=== PATIENT | female | born 1990 | race Caucasian/White ===

== ENCOUNTER → 2018-11-07 | Outpatient (CLI) | payer BC ==
[2018-11-07 09:14] LABS: HEMATOCRIT 38.8 % (36.0-47.0); HEMOGLOBIN 13.2 g/dL (12.0-15.5); MEAN CORPUSCULAR HEMOGLOBIN 29.4 pg (27.0-33.4); MEAN CORPUSCULAR VOLUME 87 fl (80-97); PLATELET COUNT 293 10^3/uL (150-450); RED BLOOD COUNT 4.47 10^6/uL (3.72-5.28); RED CELL DISTRIBUTION WIDTH 13.1 % (11.5-14.0); WHITE BLOOD COUNT 7.1 10^3/uL (4.0-10.5)
[2018-11-07 09:30] LABS: ANION GAP 12 (5-19); BLOOD UREA NITROGEN 5 mg/dL (7-20); CALCIUM 9.5 mg/dL (8.4-10.2); CARBON DIOXIDE 23 mmol/L (22-30); CHLORIDE 107 mmol/L (98-107); GLUCOSE 87 mg/dL (75-110); POTASSIUM 4.1 mmol/L (3.6-5.0); SODIUM 142.1 mmol/L (137-145)
== END ==
LOC: LAB 08:50
PROVIDERS: ATTEND Registered Nurse
DX: N91.2 Amenorrhea, unspecified (principal)
CPT/HCPCS: 36415; 80048; 84702; 85027

== ENCOUNTER 2018-11-08 13:20 | Emergency (ER) | payer BC ==
[2018-11-08 13:36] VITALS: BP 116/73
--- NOTE | 2018-11-08 14:09 | ER Document Report ---
ED General - General Chief Complaint: Vag Bleeding, +preg <12wks Stated Complaint: CRAMPING/VAGINAL BLEEDING Time Seen by Provider: 11/08/18 13:43 TRAVEL OUTSIDE OF THE [place] IN LAST 30 DAYS: No - HPI Notes: Patient is a 88-year-old female that presents to the emergency department for chief complaint of vaginal bleeding. Patient found out yesterday that she was . Her LMP was 09/26/18. She noticed some bright red vaginal bleeding that began yesterday and has continued today. She denies any blood clots or increase in bleeding. She is having lower abdominal cramping which is intermittent and sharp. She denies any vomiting but does have some nausea. She has not had any care yet. She is not currently taking vitamins. She denies concern for STD and vaginal discharge. Past Medical History: Negative Past Surgical History: Tonsillectomy Social History: Occasional alcohol. Denies tobacco and drug use Family History: Reviewed and noncontributory for presenting illness Allergies: Reviewed, see documented allergy list. REVIEW OF SYSTEMS: CONSTITUTIONAL : No fever No chills No diaphoresis No recent illness EENT: No vision changes No congestion No sore throat CARDIOVASCULAR: No chest pain No palpitations RESPIRATORY: No shortness of breath No cough No difficulty breathing GASTROINTESTINAL: abdominal pain No nausea No vomiting No diarrhea GENITOURINARY: Vaginal bleeding No dysuria No hematuria No difficulty urinating MUSCULOSKELETAL: No back pain No leg pain No arm pain SKIN: No rashes No lesions LYMPHATIC: No swollen, enlarged glands. NEUROLOGICAL: No lightheadedness No headache No weakness No paresthesias PSYCHIATRIC: No anxiety No depression PHYSICAL EXAMINATION: Vital signs reviewed, nursing noted reviewed. GENERAL: Well-appearing, well-nourished and in no acute distress. HEAD: Atraumatic, normocephalic. EYES: Eyes appear normal, extraocular movements intact, sclera anicteric, conjunctiva are normal. ENT: nares patent, oropharynx clear without exudates. Moist mucous membranes. NECK: Normal range of motion, supple without lymphadenopathy LUNGS: Breath sounds clear to auscultation bilaterally and equal. No wheezes rales or rhonchi. HEART: Regular rate and rhythm without murmurs ABDOMEN: Soft, nontender, normoactive bowel sounds. No rebound, guarding, or rigidity. No masses appreciated. EXTREMITIES: Nontender, good range of motion, no pitting or edema. NEUROLOGICAL: No focal neurological deficits. Moves all extremities spontaneously Motor and sensory grossly intact on exam. PSYCH: Normal mood, normal affect. SKIN: Warm, Dry, normal turgor, no rashes or lesions noted on exposed skin - Related Data Allergies/Adverse Reactions: amoxicillin Allergy (Verified 11/08/18 13:32) Past Medical History - General Last Menstrual Period: september 26, 2018 - Social History Smoking Status: Former Smoker Frequency of alcohol use: None Drug Abuse: None Family History: Reviewed & Not Pertinent Patient has suicidal ideation: No Patient has homicidal ideation: No Renal/ Medical History: Denies: Hx Peritoneal Dialysis Past Surgical History: Denies: Hx Tonsillectomy - adenoids only Physical Exam - Vital signs Vitals: Temp Pulse Resp BP Pulse Ox 98.7 F 75 16 116/73 100 11/08/18 13:33 11/08/18 13:33 11/08/18 13:33 11/08/18 13:33 11/08/18 13:33 Course - Re-evaluation Re-evalutation: 11/08/18 14:12 Vitals reviewed. Nursing notes reviewed. CBC, BMP and hCG quant yesterday which I reviewed. RhoGam workup was drawn today. I advised patient to get an ultrasound done in the emergency room to evaluate for ectopic . She does not wish to remain in the emergency room and states she is having to return to work right now. Without ultrasound to cannot rule out ectopic in the setting of vaginal bleeding with pain. I will order her an outpatient ultrasound and told her to obtain it at her earliest convenience. She was advised to return to the emergency room at any point in time for further workup. She will return for any worsening pain or bleeding. I did discuss threatened miscarriage with her and symptoms to monitor for. She will be referred to [employer] [employer] for follow-up. Patient understands her medical care and has capacity to make medical decisions. She will leave AGAINST MEDICAL ADVICE. - Vital Signs Vital signs: Temp Pulse Resp BP Pulse Ox 98.7 F 75 16 116/73 100 11/08/18 13:33 11/08/18 13:33 11/08/18 13:33 11/08/18 13:33 11/08/18 13:33 Discharge - Discharge Clinical Impression: Vaginal bleeding during Condition: Stable Disposition: AGAINST MEDICAL ADVICE Instructions: Threatened Miscarriage ([facility]) Additional Instructions: With vaginal bleeding in there is a concern that he may have an ectopic . It was advised today that you obtain an ultrasound to evaluate for ectopic . Ectopic is when the is implanted outside of the uterus. This can be a surgical emergency. By leaving AGAINST MEDICAL ADVICE today you are risking loss of life, fertility, and permanent disability. Please obtain the outpatient ultrasound as early as possible or return to the emergency room for reevaluation at any point in time. We yolande your blood type today. If your blood type is Rh- you will require a RhoGam injection today. It is important that you follow-up on the results of this test in case RhoGam is indicated. If you do not get the RhoGam injection when it is indicated it can cause detrimental outcomes to your current and future pregnancies. Please begin taking vitamins. Do not smoke or drink while . Forms: Follow-Up Radiology Testing Referrals: [facility] [Provider Group] - Follow up tomorrow
== END 2018-11-08 14:20 | disposition left against medical advice (07) ==
LOC: ER 13:20
DX: O20.9 Hemorrhage in early pregnancy, unspecified (principal); O26.891 Other specified pregnancy related conditions, first trimester; R10.30 Lower abdominal pain, unspecified; R11.0 Nausea; Z3A.01 Less than 8 weeks gestation of pregnancy; Z87.891 Personal history of nicotine dependence; Z53.29 Procedure and treatment not carried out because of patient's decision for other reasons
CPT/HCPCS: 36415; 86900; 86901; 99283

== ENCOUNTER → 2018-11-08 | Outpatient (CLI) | payer BC ==
--- NOTE | 2018-11-08 17:05 | RADIOLOGY REPORT (SQ) ---
EXAM DESCRIPTION: U/S OB TRANSVAG W/DOPPLER COMPLETED DATE/TIME: 11/08/2018 4:43 pm REASON FOR STUDY: VAGINAL BLEEDING IN COMPARISON: None. TECHNIQUE: Transvaginal and transabdominal static and realtime grayscale images acquired of the pelv is. Additional selected spectral and color Doppler images recorded. All images stored on PACs. bHCG: Pending. CLINICAL DATES: LMP 09/26/2018, JENNY 07/03/2019, EGA 6 weeks 1 day LIMITATIONS: None. FINDINGS: In the endometrial canal there is a anechoic structure measuring 0.66 x 0.95 x 0.75 cm mos t compatible with a gestational sac and corresponding to a gestational age of 5 weeks and 3 days. Wi thin the gestational sac there is a small yolk sac visualized. No evidence of pole. ULTRASOUND EGA: 5 weeks 3 days ULTRASOUND JENNY: 07/08/2019 SURVEY: Too early to assess. SUBCHORIONIC BLEED: No. SIZE OF BLEED: Not applicable. UTERUS: Unremarkable size and appearance measuring 8.8 x 4.3 by 6.3 cm. Small amount of fluid within the endometrial canal. CERVICAL LENGTH: 2.8 cm Closed. RIGHT ADNEXA: Normal ovary with normal vascular flow. No adnexal free fluid. No adnexal masses. LEFT ADNEXA: Normal ovary with normal vascular flow. There is a 1.8 x 1.3 cm cyst. No adnexal free fluid. No adnexal masses. FREE FLUID: None. OTHER: No other significant finding. IMPRESSION: Intrauterine gestational sac corresponding to estimated US gestational age of 5 weeks an d 3 days. No pole visualized at this time. Trimester of : First - 0 to 13 weeks. TECHNICAL DOCUMENTATION: JOB ID: [id number] [employer]- All Rights Reserved rev Reading location - IP/workstation name: [email or web address]
== END ==
LOC: RAD 16:40
PROVIDERS: ATTEND Emergency Medicine
DX: O46.90 Antepartum hemorrhage, unspecified, unspecified trimester (principal); Z3A.00 Weeks of gestation of pregnancy not specified
CPT/HCPCS: 76817; 93976

== ENCOUNTER → 2019-02-02 | Outpatient (CLI) | payer BC | LOC: LAB 08:56 | PROVIDERS: ATTEND Midwife | DX: Z36.89 Encounter for other specified antenatal screening (principal) | CPT/HCPCS: 36415; 82105 ==

== ENCOUNTER 2019-02-08 10:31 | Observation (INO) | payer BC ==
[2019-02-08] MEDS ORDERED: DEXTROSE 5%-LACTATED RINGERS 1,000 ML IV ONE ×2 (12:30→13:30)
[2019-02-08 12:47] LABS: APPEARANCE,URINE SLIGHTLY-CLOUDY; BILIRUBIN,URINE NEGATIVE (NEGATIVE); COLOR,URINE YELLOW; GLUCOSE, URINE NEGATIVE (NEGATIVE); KETONES,URINE TRACE mg/dL (NEGATIVE); LEUKOCYTE ESTERASE,URINE NEGATIVE (NEGATIVE); NITRITE,URINE NEGATIVE (NEGATIVE); PROTEIN,URINE NEGATIVE (NEGATIVE); URINE SPECIFIC GRAVITY 1.014; UROBILINOGEN,URINE NEGATIVE mg/dL (<2.0)
[2019-02-08] MEDS ORDERED: ONDANSETRON HCL INJ/PF 4 MG/2 ML SDV IV PRN (13:00)
[2019-02-08] MEDS ORDERED: PROMETHAZINE HCL INJ 25 MG/1 ML VIAL IV PRN (13:00)
[2019-02-08 13:09] LABS: HEMATOCRIT 30.5 % (36.0-47.0); HEMOGLOBIN 10.9 g/dL (12.0-15.5); MEAN CORPUSCULAR HEMOGLOBIN 30.2 pg (27.0-33.4); MEAN CORPUSCULAR HGB CONC 35.7 g/dL (32.0-36.0); MEAN CORPUSCULAR VOLUME 85 fl (80-97); PLATELET COUNT 236 10^3/uL (150-450); RED BLOOD COUNT 3.61 10^6/uL (3.72-5.28); RED CELL DISTRIBUTION WIDTH 12.6 % (11.5-14.0)
[2019-02-08] MEDS: CEFTRIAXONE 1 GM/D5W RTU 1 GM/50 ML RTUPB IV SCH ×2 (13:51→21:39)
[2019-02-08] MEDS: RINGERS SOLUTION,LACTATED 1,000 ML IV PRN (15:14)
[2019-02-08] MEDS: ACETAMINOPHEN WITH CODEINE #3 TABLET PO PRN ×2 (16:34→20:37)
--- NOTE | 2019-02-08 20:08 | RADIOLOGY REPORT (SQ) ---
EXAM DESCRIPTION: US LIMITED COMPLETED DATE/TME: 02/08/2019 00:00 CLINICAL HISTORY: 28 years, Female, CERVICAL LENGTH Findings: Cervical length measures 3.1 cm and is closed. There is a single intrauterine gestation with fetus in vertex position. LVP measures 3.7 cm. heart rate preserved at 150 bpm. JOSE ALEJANDRO is clear. Placenta lies posteriorly. IMPRESSION: Cervix is closed measuring 3 cm. Single viable IUP.
--- NOTE | 2019-02-08 20:10 | RADIOLOGY REPORT (SQ) ---
EXAM DESCRIPTION: US RETROPERITONEUM COMPLETED DATE/TME: 02/08/2019 00:00 CLINICAL HISTORY: 28 years, Female, PYELONEPHRITIS Findings: The right kidney measures 13.2 cm. Left kidney measures 11.5 cm. There is moderate right hydronephrosis. No significant left hydronephrosis. Right renal pelvis is dilated to 3.4 cm and right ureter dilated to 3.6 cm. Bladder is moderately distended and demonstrates bilateral ureteral jets. No perinephric fluid. IMPRESSION: Moderate right hydronephrosis noted. This may be related to gravid state. Bilateral ureteral jets are noted, which indicates that the urinary obstruction is not complete.
[2019-02-09] MEDS: ACETAMINOPHEN WITH CODEINE #3 TABLET PO PRN ×3 (00:55→09:42)
[2019-02-09] MEDS: RINGERS SOLUTION,LACTATED 1,000 ML IV PRN ×2 (05:41→11:18)
[2019-02-09] MEDS: CEFTRIAXONE 1 GM/D5W RTU 1 GM/50 ML RTUPB IV SCH ×2 (09:38→21:36)
--- NOTE | 2019-02-09 12:55 | PDOC PROGRESS REPORT ---
Subjective Progress Note for:: 02/09/19 Subjective:: Pt states that she is less painful today. However, she is complaining of a headache that is resolved with Tylenol #3 for an hour or 2 but then returns; patient reports good movement. Patient denies contractions, cramping and leakage of fluid. Reason For Visit: PYELONEPHRITIS Physical Exam - Physical Exam Vital Signs: Temp Pulse Resp BP Pulse Ox 98.6 F 93 18 99/67 L 100 02/09/19 11:51 02/09/19 11:51 02/09/19 11:51 02/09/19 11:51 02/09/19 11:51 Intake & Output 02/08/19 02/09/19 02/10/19 06:59 06:59 06:59 Intake Total 1520 702 Balance 1520 702 Weight 69.4 kg General appearance: PRESENT: no acute distress Respiratory exam: PRESENT: clear to auscultation nisreen Cardiovascular exam: PRESENT: RRR GI/Abdominal exam: PRESENT: normal bowel sounds, soft Musculoskeletal exam: ABSENT: ambulatory, deformity, dislocation, full ROM, normal inspection, tenderness, other Result Laboratory Results: 02/08/19 12:54 02/08/19 02/08/19 12:25 12:54 WBC 11.0 H RBC 3.61 L Hgb 10.9 L Hct 30.5 L MCV 85 MCH 30.2 MCHC 35.7 RDW 12.6 Plt Count 236 Urine Color YELLOW Urine Appearance SLIGHTLY-CLOUDY Urine pH 6.0 Ur Specific [place] 1.014 Urine Protein NEGATIVE Urine Glucose (UA) NEGATIVE Urine Ketones TRACE H Urine Blood MODERATE H Urine Nitrite NEGATIVE Ur Leukocyte Esterase NEGATIVE Urine WBC (Auto) 7 Urine RBC (Auto) 5 Impressions: Obstetrics Ultrasound 02/08/19 00:00 IMPRESSION: Cervix is closed measuring 3 cm. Single viable IUP. Renal Ultrasound 02/08/19 00:00 IMPRESSION: Moderate right hydronephrosis noted. This may be related to gravid state. Bilateral ureteral jets are noted, which indicates that the urinary obstruction is not complete. Assessment & Plan - Diagnosis (1) Hydronephrosis of right kidney Is this a current diagnosis for this admission?: Yes (2) Pyelonephritis affecting in second trimester Is this a current diagnosis for this admission?: Yes (3) UTI (urinary tract infection) Qualifiers: Urinary tract infection type: acute pyelonephritis Qualified Code(s): N10 - Acute pyelonephritis Is this a current diagnosis for this admission?: Yes - Time Time Spent with patient: Less than 15 minutes Medications reviewed and adjusted accordingly: Yes Within: within 48 hours - Inpatient Certification Based on my medical assessment, after consideration of the patient's comorbidities, presenting symptoms, or acuity I expect that the services needed warrant INPATIENT care.: No - Plan Summary Plan Summary: 1. Continue antibiotics 2. Await urine culture 3. Pain management
[2019-02-09] MEDS: IBUPROFEN 800 MG TABLET PO PRN ×2 (13:37→21:38)
[2019-02-10] MEDS: RINGERS SOLUTION,LACTATED 1,000 ML IV PRN (04:34)
[2019-02-10] MEDS: IBUPROFEN 800 MG TABLET PO PRN (08:02)
[2019-02-10] MEDS: CEFTRIAXONE 1 GM/D5W RTU 1 GM/50 ML RTUPB IV SCH (09:16)
--- NOTE | 2019-02-10 09:22 | Discharge Summary ---
Discharge Summary (SDC) - Discharge Final Diagnosis: UTI Pyelonephritis Discharge Date: 02/10/19 Condition: Good Referrals: ZANA RODRIGUEZ DO [Primary Care Provider] - Discharge Diet: As Tolerated - pt admitted with pyelonephritis and received IV antibiotics. pt is improved and remained afebrile discharged and she will keep her regular appointment. d/brenda on keflex 500 qid Discharge Activity: Activity As Tolerated, Walk Frequently Home Care Assistance: None Needed Report the Following to Your Physician Immediately: Shortness of Breath, Nausea, Vomiting, Increase in Pain, Fever over 101 Degrees, Redness, Swelling, IV Site Infection Signs, Urinary Infection Signs
[2019-02-10 11:37] VITALS: BP 124/75
== END 2019-02-10 12:05 | disposition home or self-care (01) ==
LOC: LC 10:31 → INTOOBSV 10:32 → 2N 10:32 → UNDODISIN 15:03
PROVIDERS: ADMIT Student in an Organized Health Care Education/Training Program; ATTEND Student in an Organized Health Care Education/Training Program
DX: O23.02 Infections of kidney in pregnancy, second trimester (principal); O26.892 Other specified pregnancy related conditions, second trimester; R51 Headache; O99.89 Other specified diseases and conditions complicating pregnancy, childbirth and the puerperium; N13.30 Unspecified hydronephrosis; Z3A.19 19 weeks gestation of pregnancy
CPT/HCPCS: 36415; 87086; 85027; 87088; 81001; 87186; 76770; 76815; J2405; J7120 ×3; J0696 ×3